=== PATIENT | female | born 1990 | race Caucasian/White ===

== ENCOUNTER 2016-08-27 00:40 | Inpatient (IN) | payer OTHER ==
[~2016-08-27] VITALS: Ht 182.9 cm; Wt 99.8 kg
[2016-08-27] MEDS ORDERED: OXYTOCIN/NORMAL SALINE 1,000 ML IV SCH ×2 (00:46→23:45)
[2016-08-27] MEDS ORDERED: LR 1,000 ML IV SCH (00:46)
[2016-08-27] MEDS ORDERED: LR 1,000 ML IV ONE (00:46)
[2016-08-27] MEDS ORDERED: NALBUPHINE HCL 10 MG/ML AMP IM PRN (01:00)
[2016-08-27] MEDS ORDERED: NALBUPHINE HCL 10 MG/ML AMP IVP PRN (01:00)
[2016-08-27] MEDS ORDERED: DINOPROSTONE 10 MG SUPP VG ONE (01:00)
[2016-08-27] MEDS ORDERED: TERBUTALINE SULFATE 1 MG/ML VIAL SUBCUT ONE (01:00)
[2016-08-27 01:12] LABS: BASOPHILS # (AUTO) 0.3 K/uL (0.0-0.2); EOSINOPHILS # (AUTO) 0.2 K/uL (0.0-0.4); EOSINOPHILS % (AUTO) 1.3 % (0.0-4.0); HEMATOCRIT 32.1 % (36-48); HEMOGLOBIN 10.7 g/dL (12.0-16.0); LYMPHOCYTES # (AUTO) 2.1 K/uL (1.0-5.5); LYMPHOCYTES % (AUTO) 15.8 % (20.5-51.5); MEAN CORPUSCULAR HEMOGLOBIN 29 pg (27-31); MEAN CORPUSCULAR HGB CONC 33 % (32-36); MEAN CORPUSCULAR VOLUME 86 fL (79.0-98.0); MONOCYTES # (AUTO) 1.2 K/uL (0.0-1.0); MONOCYTES % (AUTO) 8.5 % (1.7-9.3); NEUTROPHILS # (AUTO) 9.8 K/uL (1.8-7.7); NEUTROPHILS % (AUTO) 72.4 % (40.0-70.0); PLATELET COUNT (AUTO) 229 K/uL (130-430); RED BLOOD CELL COUNT(AUTO) 3.75 MIL/uL (4.2-6.2); RED CELL DISTRIBUTION WIDTH 12.5 % (9.0-15.0); WHITE BLOOD COUNT (AUTO) 13.6 K/uL (4.8-10.8)
[2016-08-27 02:07] VITALS: BP_SYST 115
--- NOTE | 2016-08-27 11:59 | NUR ---
Rec'd case mgt referral for 3 or more high risk criteria, however, nurse marked "no" on high risk criteria identified and "yes" on refer to CM/Discharge planning. I spoke with Argenis, OB nurse who has pt today. Argenis indicates pt has no high risk criteria and this was probably flagged/checked incorrectly. She will check with the night nurse silver that checked the cm referral for high risk criteria referral.
[2016-08-27] MEDS ORDERED: fentaNYL CITRATE/PF 100 MCG/2 ML AMP ONE (18:03)
[2016-08-27] MEDS ORDERED: FENT2mCg/mL-ROPIVA0.2%/NS EPID 150 ML EP SCH (18:03)
[2016-08-27] MEDS ORDERED: FENT2mCg/mL-ROPIVA0.2%/NS EPID 150 ML EP ONE (18:03)
[2016-08-27] MEDS ORDERED: fentaNYL CITRATE/PF 100 MCG/2 ML AMP IVP ONE (18:04)
[2016-08-27] MEDS ORDERED: HYDROcodone/ACETAMIN 5-325 MG TAB (NORCO/ VICODIN) PO PRN (23:45)
[2016-08-27] MEDS ORDERED: DERMOPLAST SPRAY TP PRN (23:45)
[2016-08-27] MEDS ORDERED: HYDROCORTISONE 0.5%, 28.35 GM TOPICAL CREAM TP PRN (23:45)
[2016-08-27] MEDS ORDERED: GLYCERIN/WITCH HAZEL (TUCKS PADS) TP PRN (23:45)
[2016-08-27] MEDS ORDERED: OXYTOCIN/NORMAL SALINE 1,000 ML IV ONE (23:45)
[2016-08-27] MEDS ORDERED: MEASLES,MUMPS&RUBELLA VACC/PF 12500 UNIT/0.5 ML VIAL SUBQ PRN (23:45)
[2016-08-27] MEDS ORDERED: RHO(D) IMMUNE GLOBULIN/MALTOSE 1500 UNITS/1.3 ML (WINHRO) IM PRN (23:45)
[2016-08-27] MEDS ORDERED: OXYCODONE/ACETAMINOPHEN 5-325 TABLET PO PRN ×2 (23:45)
[2016-08-27] MEDS ORDERED: LANOLIN 7 GM OINT. TP PRN (23:45)
[2016-08-28] MEDS: IBUPROFEN 600 MG TABLET PO SCH ×3 (02:30→18:22)
[2016-08-28 06:33] LABS: BASOPHILS # (AUTO) 0.1 K/uL (0.0-0.2); BASOPHILS % (AUTO) 0.4 % (0.0-2.0); EOSINOPHILS # (AUTO) 0.2 K/uL (0.0-0.4); EOSINOPHILS % (AUTO) 0.9 % (0.0-4.0); LYMPHOCYTES # (AUTO) 1.7 K/uL (1.0-5.5); LYMPHOCYTES % (AUTO) 9.9 % (20.5-51.5); RED BLOOD CELL COUNT(AUTO) 3.39 MIL/uL (4.2-6.2)
[2016-08-28 06:43] LABS: HEMOGLOBIN 9.6 g/dL (12.0-16.0); MEAN CORPUSCULAR HEMOGLOBIN 28 pg (27-31); MEAN CORPUSCULAR HGB CONC 33 % (32-36); MEAN CORPUSCULAR VOLUME 86 fL (79.0-98.0); MONOCYTES # (AUTO) 1.4 K/uL (0.0-1.0); NEUTROPHILS # (AUTO) 13.7 K/uL (1.8-7.7); NEUTROPHILS % (AUTO) 80.8 % (40.0-70.0); PLATELET COUNT (AUTO) 207 K/uL (130-430); RED CELL DISTRIBUTION WIDTH 12.4 % (9.0-15.0); WHITE BLOOD COUNT (AUTO) 17.1 K/uL (4.8-10.8)
[2016-08-28] MEDS: DOCUSATE SODIUM 100 MG CAPSULE PO PRN (12:35)
[2016-08-28] MEDS ORDERED: FENT2mCg/mL-ROPIVA0.2%/NS EPID 150 ML EP ONE (18:18)
[2016-08-28] MEDS ORDERED: fentaNYL CITRATE/PF 100 MCG/2 ML AMP IVP ONE (18:18)
[2016-08-28] MEDS ORDERED: fentaNYL CITRATE/PF 100 MCG/2 ML AMP ONE (18:18)
[2016-08-29] MEDS: IBUPROFEN 600 MG TABLET PO SCH ×3 (00:10→11:50)
[2016-08-29] MEDS: DOCUSATE SODIUM 100 MG CAPSULE PO PRN (14:23)
== END 2016-08-29 14:27 | disposition home or self-care (01) | DRG 774 ==
LOC: SPU 00:40
PROVIDERS: ADMIT Specialist; ATTEND Specialist
PROC: 10D07Z6 Extraction of Products of Conception, Vacuum, Via Natural or Artificial Opening (ICD-10-PCS; principal; 2016-08-27)
PROC: 3E0S3CZ (ICD-10-PCS; 2016-08-27)
PROC: 00HU33Z Insertion of Infusion Device into Spinal Canal, Percutaneous Approach (ICD-10-PCS; 2016-08-27)
PROC: 0W8NXZZ Division of Female Perineum, External Approach (ICD-10-PCS; 2016-08-27)
PROC: 3E033VJ Introduction of Other Hormone into Peripheral Vein, Percutaneous Approach (ICD-10-PCS; 2016-08-27)
DX: O98.32 Other infections with a predominantly sexual mode of transmission complicating childbirth (principal); Z3A.40 40 weeks gestation of pregnancy; Z37.0 Single live birth; A63.0 Anogenital (venereal) warts; Z68.29 Body mass index [BMI] 29.0-29.9, adult; O99.214 Obesity complicating childbirth; O99.02 Anemia complicating childbirth; D64.9 Anemia, unspecified; E66.9 Obesity, unspecified; O69.81X0 Labor and delivery complicated by cord around neck, without compression, not applicable or unspecified
CPT/HCPCS: 36415; 85025; 86592; 86886; 86900; 86901; J2590; J3010; J7120